=== PATIENT | female | born 1995 | race Caucasian/White ===

== ENCOUNTER 2020-10-12 20:00 | Emergency (ER) | payer MEDICAID ==
[~2020-10-12] VITALS: Ht 157.5 cm; Wt 47.0 kg
[2020-10-12 21:16] LABS: BASOPHILS % (AUTO) 0 % (0-1); EOSINOPHILS % (AUTO) 1 % (1-7); LYMPHOCYTES % (AUTO) 13 % (22-44); MEAN PLATELET VOLUME 9.5 fL (7.4-10.4); MONOCYTES % (AUTO) 6 % (2-9); NEUTROPHILS % (AUTO) 80 % (42-75); PLATELET COUNT 310 x10^3/uL (130-400); RED BLOOD COUNT 4.73 x10^6/uL (3.82-5.3); RED CELL DISTRIBUTION WIDTH 13.8 % (9.6-15.2)
[2020-10-12 21:20] LABS: ALBUMIN 3.4 g/dL (3.4-5.0); ANION GAP 9 mmol/L (5-15); CALCIUM 8.9 mg/dL (8.5-10.1); CHLORIDE 104 mmol/L (98-107); CREATININE 0.58 mg/dL (0.55-1.02)
[2020-10-12 22:10] LABS: MICROSCOPIC INDICATED
--- NOTE | 2020-10-12 22:18 | NUR ---
FAMILY TO HALLWAY STATING PATIENT NOT FEELING WELL, PATIENT C/O OFF DIZZINESS AND FEELING "HOT". PATIENT WITH PALE SKIN, WARM, AND DRY. INTIAL BP OF 58/27. PATIENT ALERT AND ORIENTED X4. PATIENT PLACED IN [place]. BP TO 60/32, PA AND MD NOTIFIED. ON MD ARRIVAL PATIENT 78/41. PIV PLACED AND FLUIDS STARTED. BP NOW 99/61 WITH A MAP OF 72.
[2020-10-12] MEDS ORDERED: SODIUM CHLORIDE 0.9% 1,000ML IVBOLUS ONE (22:30)
[2020-10-12] MEDS ORDERED: SODIUM CHLORIDE FLUSH 10ML SYR IVF ONE (22:30)
--- NOTE | 2020-10-12 23:30 | NUR ---
Pt ambulated around room and to restroom with steady gait, no light headedness or dizziness reported. Pt tolerated well.
[2020-10-12 23:42] VITALS: BP 110/65
== END 2020-10-13 00:07 | disposition home or self-care (01) ==
LOC: ED 21:22
DX: O20.0 Threatened abortion (principal); R10.2 Pelvic and perineal pain; Z3A.11 11 weeks gestation of pregnancy
CPT/HCPCS: 36415; 76801; 80048; 81001; 82040; 84702; 85025; 86901; 87086; 96360; 99284; J7030

== ENCOUNTER 2020-10-14 19:33 | Emergency (ER) | payer MEDICAID ==
[~2020-10-14] VITALS: Ht 157.5 cm; Wt 49.6 kg
[2020-10-14 20:09] VITALS: BP 129/70
[2020-10-14 21:25] LABS: BASOPHILS % (AUTO) 1 % (0-1); EOSINOPHILS % (AUTO) 4 % (1-7); LYMPHOCYTES % (AUTO) 27 % (22-44); MEAN CORPUSCULAR HEMOGLOBIN 29.1 pg (27.0-34.8); MEAN CORPUSCULAR HGB CONC 33.3 g/dL (32.4-35.8); MEAN PLATELET VOLUME 9.2 fL (7.4-10.4); MONOCYTES % (AUTO) 6 % (2-9); NEUTROPHILS % (AUTO) 64 % (42-75); PLATELET COUNT 279 x10^3/uL (130-400); RED BLOOD COUNT 3.94 x10^6/uL (3.82-5.3); RED CELL DISTRIBUTION WIDTH 13.8 % (9.6-15.2)
== END 2020-10-14 22:01 | disposition home or self-care (01) ==
LOC: ED 21:07
DX: O03.9 Complete or unspecified spontaneous abortion without complication (principal); D64.9 Anemia, unspecified
CPT/HCPCS: 36415; 84702; 85025; 99283